=== PATIENT | female | born 1995 | race African-American/Black ===

== ENCOUNTER 2020-11-07 00:12 | Emergency (ER) | payer SELFPAY ==
[~2020-11-07] VITALS: Ht 167.6 cm; Wt 100.0 kg
[2020-11-07 01:28] LABS: BILIRUBIN,URINE NEGATIVE (NEG); CLARITY,URINE CLEAR; COLOR,URINE YELLOW; NITRITE,URINE NEGATIVE (NEG); PH,URINE 7.5 (<5.0-8.0); PROTEIN,URINE NEGATIVE (NEG-TRACE); UROBILINOGEN,URINE 0.2 mg/dL (0.2 mg/dL)
[2020-11-07] MEDS: ONDANSETRON PF 4 MG/2 ML VIAL. IVP ONE ×2 (01:37→02:17)
[2020-11-07 01:40] LABS: BACTERIA,URINE MOD /HPF (0-FEW); WBC,URINE OCC /HPF (0-4)
[2020-11-07 01:46] LABS: BASO % 0 % (0-3); EOS # 0.2 x10^3/uL (0.0-0.7); EOS % 2 % (0-3); HEMATOCRIT 37.9 % (36.0-47.0); HEMOGLOBIN 12.8 g/dL (12.0-15.5); LYMPH # 2.5 x10^3/uL (1.0-4.8); LYMPH % 20 % (24-48); MEAN CORPUSCULAR HEMOGLOBIN 31 pg (25-35); MEAN CORPUSCULAR HGB CONC 34 g/dL (31-37); MEAN CORPUSCULAR VOLUME 93 fL (79-100); MONO # 0.8 x10^3/uL (0.0-1.1); MONO % 6 % (0-9); NEUT # 9.1 x10^3/uL (1.8-7.7); NEUT % 72 % (31-73); PLATELET COUNT 368 x10^3/uL (140-400); RED BLOOD COUNT 4.09 x10^6/uL (3.50-5.40); RED CELL DISTRIBUTION WIDTH 13.6 % (11.5-14.5); WHITE BLOOD COUNT 12.6 x10^3/uL (4.0-11.0)
--- NOTE | 2020-11-07 01:53 | EKG ---
[facility] [address] [place] [address] Test Date: 2020-11-07 Test Time: 01:49:34 Pat Name: GILLIAN HUDDLESTON Department: Room: Gender: F Heavy Duty Mechanic: : 1995 Requested By: DEVON ORTEZ Order Number: [id number] Reading MD: Measurements Intervals [place] Rate: 80 P: 42 WY: 150 QRS: 44 QRSD: 80 T: 27 QT: 388 QTc: 451 Interpretive Statements SINUS RHYTHM LEFT ATRIAL ABNORMALITY ABNORMAL ECG RI6.02 No previous ECG available for comparison
[2020-11-07 02:00] LABS: CALCIUM 9.1 mg/dL (8.5-10.1); CREATININE 0.9 mg/dL (0.6-1.0); GFR 90.9; POTASSIUM 3.6 mmol/L (3.5-5.1)
[2020-11-07 02:06] LABS: ALBUMIN 4.2 g/dL (3.4-5.0); ALBUMIN/GLOBULIN RATIO 1.2 (1.0-1.7); TOTAL BILIRUBIN 0.3 mg/dL (0.2-1.0); TOTAL PROTEIN 7.6 g/dL (6.4-8.2)
[2020-11-07] MEDS: MORPHINE SULFATE 4 MG/ML VIAL. IV ONE (02:17)
[2020-11-07] MEDS: KETOROLAC 15 MG/ML VIAL. IVP ONE (04:07)
--- NOTE | 2020-11-07 04:25 | RAD ---
One view lower and pelvis KUB HISTORY: Abdominal pain Supine AP view lower abdomen pelvis There is air and stool scattered the colon. The paucity small bowel gas. As no obvious free air. Ther e is a paucity of gas within the left colon. IMPRESSION: Nonobstructive bowel gas pattern. Left-sided colitis is possible. Electronically signed by: Suresh Andujar III, MD (11/07/2020 4:22 AM) [facility]
--- NOTE | 2020-11-07 04:41 | PHYS DOC ---
Past Medical History Past Medical History: Anxiety, Other Additional Past Medical Histor: "back problems" Past Surgical History: No Surgical History Smoking Status: Never Smoker Alcohol Use: Occasionally Social History Narrative: occasional marijuana use Adult General Chief Complaint Chief Complaint: ABDOMINAL PAIN HPI HPI Patient is a 25 year old female with past medical history anxiety now presenting the emergency department complaint of new onset of abdominal pain. Ana bosch describes been to have her start arrival she started having pain and she started to left upper back and has been migrating throughout her abdomen since that time. Patient states it is been associated with mild nausea has had 2 episodes of nonbloody nonbilious vomiting. Denies any diarrhea. Denies any fever, chills, chest pain or shortness of breath. Denies any history of similar symptoms. Review of Systems Review of Systems Constitutional: Denies fever or chills [] Eyes: Denies change in visual acuity, redness, or eye pain [] HENT: Denies nasal congestion or sore throat [] Respiratory: Denies cough or shortness of breath [] Cardiovascular: No additional information not addressed in HPI [] GI: Denies abdominal pain, nausea, vomiting, bloody stools or diarrhea [] : Denies dysuria or hematuria [] Musculoskeletal: Denies back pain or joint pain [] Integument: Denies rash or skin lesions [] Neurologic: Denies headache, focal weakness or sensory changes [] Endocrine: Denies polyuria or polydipsia [] All other systems were reviewed and found to be within normal limits, except as documented in this note. Current Medications Current Medications Current Medications Medications (Trade) Dose Ordered Sig/[facility] Start Time Stop Time Status Last Admin Dose Admin Ketorolac Tromethamine (Toradol 15mg Vial) 15 mg 1X ONCE 11/07/20 04:00 11/07/20 04:01 DC 11/07/20 04:07 15 MG Morphine Sulfate (Morphine Sulfate) 4 mg 1X ONCE 11/07/20 02:15 11/07/20 02:16 DC 11/07/20 02:17 4 MG Ondansetron HCl (Zofran) 4 mg 1X ONCE 11/07/20 02:15 11/07/20 02:16 DC 11/07/20 02:17 4 MG Allergies Allergies Allergies Coded Allergies Type Severity Reaction Last Updated Verified No Known Drug Allergies 11/07/20 No Physical Exam Physical Exam Constitutional: Well developed, well nourished, no acute distress, non-toxic appearance. [] HENT: Normocephalic, atraumatic, bilateral external ears normal, oropharynx moist, no oral exudates, nose normal. [] Eyes: PERRLA, EOMI, conjunctiva normal, no discharge. [] Neck: Normal range of motion, no tenderness, supple, no stridor. [] Cardiovascular:Heart rate regular rhythm, no murmur [] Lungs & Thorax: Bilateral breath sounds clear to auscultation [] Abdomen: Bowel sounds normal, soft, no tenderness, no masses, no pulsatile masses. [] Skin: Warm, dry, no erythema, no rash. [] Back: No tenderness, no CVA tenderness. [] Extremities: No tenderness, no cyanosis, no clubbing, ROM intact, no edema. [] Neurologic: Alert and oriented X 3, normal motor function, normal sensory function, no focal deficits noted. [] Psychologic: Affect normal, judgement normal, mood normal. [] Current Patient Data Vital Signs Vital Signs Date Time Temp Pulse Resp B/P (MAP) Pulse Ox O2 Delivery O2 Flow Rate FiO2 11/07/20 02:17 21 98 11/07/20 01:05 98.3 92 143/77 (99) Room Air 98.3 Lab Values Laboratory Tests Test 11/07/20 00:20 11/07/20 00:22 11/07/20 01:35 Urine Collection Type Unknown Urine Color Yellow Urine Clarity Clear Urine pH 7.5 (<5.0-8.0) Urine Specific Badger 1.015 (1.000-1.030) Urine Protein Negative mg/dL (NEG-TRACE) Urine Glucose (UA) Negative mg/dL (NEG) Urine Ketones (Stick) 15 mg/dL (NEG) Urine Blood Trace (NEG) Urine Nitrite Negative (NEG) Urine Bilirubin Negative (NEG) Urine Urobilinogen Dipstick 0.2 mg/dL (0.2 mg/dL) Urine Leukocyte Esterase Negative (NEG) Urine RBC 1-2 /HPF (0-2) Urine WBC Occ /HPF (0-4) Urine Squamous Epithelial Cells Many /LPF Urine Bacteria Mod /HPF (0-FEW) Urine Mucus Slight /LPF POC Urine HCG, Qualitative Hcg negative (Negative) White Blood Count 12.6 x10^3/uL (4.0-11.0) H Red Blood Count 4.09 x10^6/uL (3.50-5.40) Hemoglobin 12.8 g/dL (12.0-15.5) Hematocrit 37.9 % (36.0-47.0) Mean Corpuscular Volume 93 fL (79-100) Mean Corpuscular Hemoglobin 31 pg (25-35) Mean Corpuscular Hemoglobin Concent 34 g/dL (31-37) Red Cell Distribution Width 13.6 % (11.5-14.5) Platelet Count 368 x10^3/uL (140-400) Neutrophils (%) (Auto) 72 % (31-73) Lymphocytes (%) (Auto) 20 % (24-48) L Monocytes (%) (Auto) 6 % (0-9) Eosinophils (%) (Auto) 2 % (0-3) Basophils (%) (Auto) 0 % (0-3) Neutrophils # (Auto) 9.1 x10^3/uL (1.8-7.7) H Lymphocytes # (Auto) 2.5 x10^3/uL (1.0-4.8) Monocytes # (Auto) 0.8 x10^3/uL (0.0-1.1) Eosinophils # (Auto) 0.2 x10^3/uL (0.0-0.7) Basophils # (Auto) 0.0 x10^3/uL (0.0-0.2) Sodium Level 141 mmol/L (136-145) Potassium Level 3.6 mmol/L (3.5-5.1) Chloride Level 103 mmol/L (98-107) Carbon Dioxide Level 28 mmol/L (21-32) Anion Gap 10 (6-14) Blood Urea Nitrogen 12 mg/dL (7-20) Creatinine 0.9 mg/dL (0.6-1.0) Estimated GFR (Cockcroft-Gault) 90.9 BUN/Creatinine Ratio 13 (6-20) Glucose Level 109 mg/dL (70-99) H Calcium Level 9.1 mg/dL (8.5-10.1) Total Bilirubin 0.3 mg/dL (0.2-1.0) Aspartate Amino Transferase (AST) 52 U/L (15-37) H Alanine Aminotransferase (ALT) 58 U/L (14-59) Alkaline Phosphatase 95 U/L (46-116) Creatine Kinase 338 U/L (26-192) H Total Protein 7.6 g/dL (6.4-8.2) Albumin 4.2 g/dL (3.4-5.0) Albumin/Globulin Ratio 1.2 (1.0-1.7) Lipase 71 U/L (73-393) L Laboratory Tests 11/07/20 01:35 Laboratory Tests 11/07/20 01:35 EKG EKG [] Radiology/Procedures Radiology/Procedures One view lower and pelvis KUB HISTORY: Abdominal pain Supine AP view lower abdomen pelvis There is air and stool scattered the colon. The paucity small bowel gas. As no obvious free air. There is a paucity of gas within the left colon. IMPRESSION: Nonobstructive bowel gas pattern. Left-sided colitis is possible. Electronically signed by: Suresh Andujar III, MD (11/07/2020 4:22 AM) [facility] Course & Med Decision Making Course & Med Decision Making Pertinent Labs and Imaging studies reviewed. (See chart for details) 25F presenting with nonspecific migrating abdominal pain most consistent with acute constipation, colitis or increased bowel gas. Will obtain labs to make sure there is no significant underlying etiology, treat symptomatically with Zofran and morphine and reevaluate. X-ray, labs and physical exam consistent with acute colitis. Will discharge the patient with Zofran and antibiotics. Dragon Disclaimer Dragon Disclaimer This electronic medical record was generated, in whole or in part, using a voice recognition dictation system. Departure Departure Impression: Primary Impression: Acute colitis Disposition: HOME / SELF CARE / HOMELESS Condition: GOOD Referrals: LANDEN JAIMES MD Patient Instructions: Colitis Additional Instructions: EMERGENCY DEPARTMENT GENERAL DISCHARGE INSTRUCTIONS Thank you for coming to [facility] Emergency Department (ED) today and trusting us with you care. We trust that you had a positive experience in our Emergency Department. If you wish to speak to the department management, you may call the Director at [phone]. YOUR FOLLOW UP INSTRUCTIONS ARE FOLLOWS: 1. Do you have a private Doctor? If you do not have a private doctor, please ask for a resource list of physicians or clinics that may be able to assist you with follow up care. 2. The Emergency Physicain has interpreted your x-rays. The X-Ray specialist will also review them. If there is a change in the findings, you will be notified in 48 hours when at all possible. 3. A lab test or culture has been done, your results will be reviewed and you will be notified if you need a change in treatment. ADDITIONAL INSTRUCTIONS AND INFORMATION: 1. Your care today has been supervised by a physician who is specially trained in emergency care. Many problems require more than one evaluation for a complete diagnosis and treatment. We recommend that you schedule your follow up appointment as recommended to ensure complete treatment of you illness or injury. If you are unable to obtain follow up care and continue to have a problem, or if your condition worsens, we recommend that you return to the ED. 2. We are not able to safely determine your condition over the phone nor are we able to give sound medical advice over the phone. For these safety reasons, if you call for medical advice we will ask you to come to the ED for further evaluation. 3. If you have any questions regarding these discharge instructions please call the ED at [phone]. SAFETY INFORMATION: In the interest of safety, wellness, and injury prevention; we encourage you to wear your sealbelt, if you smoke; quite smoking, and we encourage family to use a protective helmet for bicycling and other sporting events that present an increased risk for head injury. IF YOUR SYMPTOMS WORSEN OR NEW SYMPTOMS DEVELOP, OR YOU HAVE CONCERNS ABOUT YOUR CONDITION; OR IF YOUR CONDITION WORSENS WHILE YOU ARE WAITING FOR YOUR FOLLOW UP APPOINTMENT; EITHER CONTACT YOUR PRIMARY CARE DOCTOR, THE PHYSICIAN WHOSE NAME AND NUMBER YOU WERE GIVEN, OR RETURN TO THE ED IMMEDIATELY. Scripts Ondansetron Hcl (ZOFRAN) 4 Mg Tablet 1 TAB PO Q8HRS, #30 TAB Prov: DEVON ORTEZ MD 11/07/20 Metronidazole (FLAGYL) 500 Mg Tablet 500 MG PO TID for 10 Days, #30 TAB Prov: DEVON ORTEZ MD 11/07/20 Ciprofloxacin Hcl (CIPRO) 500 Mg Tablet 1 TAB PO BID for 7 Days, #14 TAB 0 Refills Prov: DEVON ORTEZ MD 11/07/20 DEVON ORTEZ MD Nov 07, 2020 04:41
[2020-11-07 05:04] VITALS: BP 120/67
[2020-11-07] MEDS ORDERED: CIPR500T94 PO (05:29)
[2020-11-07] MEDS ORDERED: ONDA4TAB7 PO (05:29)
[2020-11-07] MEDS ORDERED: METR500T PO (05:29)
== END 2020-11-07 05:37 | disposition home or self-care (01) ==
LOC: ER 00:12
DX: K52.9 Noninfective gastroenteritis and colitis, unspecified (principal); R11.0 Nausea; M54.6 Pain in thoracic spine; R10.9 Unspecified abdominal pain; F41.9 Anxiety disorder, unspecified; F12.90 Cannabis use, unspecified, uncomplicated
CPT/HCPCS: 36415; 74018; 80053; 81001; 81025; 82550; 83690; 85025; 93005; 96374; 96375; 96376; 99285; J1885; J2270; J2405